=== PATIENT | female | born 1990 | race Caucasian/White ===

== ENCOUNTER → 2019-10-15 | Outpatient (CLI) | payer OTHER ==
--- NOTE | 2019-10-15 17:15 | REP ---
Clinical: Dyspnea. Screening nCOVID-19. Comparison: None . Technique: PA and lateral. Findings: The mediastinum and cardiac silhouette are normal. The lung jones are clear and without acute consolidation, effusion, or pneumothorax. The skeletal structures are intact and normal. Impression: 1. No focal consolidation, obvious atelectasis or effusion. Electronically Signed by Wade Ambrose MD 10/15/2019 05:07 P
== END ==
LOC: M LRY 16:52
PROVIDERS: ATTEND Nurse Practitioner Family
DX: R50.9 Fever, unspecified (principal)

== ENCOUNTER → 2019-10-15 | Outpatient (REF) | payer OTHER | LOC: M SFHCLERA 17:01 | PROVIDERS: ATTEND Nurse Practitioner Family | DX: R06.02 Shortness of breath (principal); R50.9 Fever, unspecified | CPT/HCPCS: 71046; 87486; 87581; 87633; 87798; 87804; 87880; G0463 ==

== ENCOUNTER → 2021-12-17 | Outpatient (CLI) | payer OTHER ==
[~2021-12-17] MED LIST: NO HOME MEDS
== END ==
LOC: EDSEX 07:11 → M PLAIMG 07:11
PROVIDERS: ATTEND Nurse Practitioner Family
DX: Z87.820 Personal history of traumatic brain injury (principal)